=== PATIENT | female | born 1970 | race Caucasian/White ===

== ENCOUNTER 2019-09-14 15:13 | Observation (INO) | payer OTHER ==
[2019-09-14] MEDS ORDERED: SODIUM CHLORIDE 0.9% 500 ML 500 ML IV STA (15:36)
--- NOTE | 2019-09-14 15:53 | ED ---
General Adult HPI - General Chief complaint: Back Pain/Injury Stated complaint: Abd Pain, Nausea Time Seen by Provider: 09/14/19 15:29 Source: patient, RN notes reviewed Mode of arrival: wheelchair Limitations: no limitations, physical limitation - History of Present Illness Initial comments: This a 40-year-old female presents emergency Department with chief complaint of abdominal pain, back pain. Patient states his has been present for last 5 days. He states she states it does wax and wane but nothing really triggers the pain. Patient states that it's apartment which she cannot tolerate she states that she had to take some [place]. Patient states pain is 1 the right side. She does admit that she's had a prior LAP-BAND surgery was medications she did state that she touches constipated so took some laxatives and states that she made symptoms worse. She reports no fevers chills slight nausea no vomiting no dysuria no hematuria denies any current chest pain or shortness breath - Related Data Allergies Allergy/AdvReac Type Severity Reaction Status Date / Time Tetanus Vaccines and Toxoid Allergy transeveres Verified 09/14/19 15:24 myletis Review of Systems ROS Statement: Those systems with pertinent positive or pertinent negative responses have been documented in the HPI. ROS Other: All systems not noted in ROS Statement are negative. 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 Absent: tenderness, meningismus, lymphadenopathy Respiratory exam: Present: normal lung sounds bilaterally. Absent: respiratory distress, wheezes, rales, rhonchi, stridor Cardiovascular Exam: Present: regular rate, normal rhythm, normal heart sounds. Absent: systolic murmur, diastolic murmur, rubs, gallop, clicks GI/Abdominal exam: Present: soft, tenderness (Mild to moderate right upper quadrant), normal bowel sounds. Absent: distended, guarding, rebound, rigid Back exam: Present: CVA tenderness (R). Absent: CVA tenderness (L) Neurological exam: Present: alert, oriented X3 Skin exam: Present: warm, dry, intact, normal color. Absent: rash Course Vital Signs 09/14/19 15:18 Temperature 98.3 F Pulse Rate 86 Respiratory 18 Rate Blood Pressure 182/80 O2 Sat by Pulse 100 Oximetry - Reevaluation(s) Reevaluation #1: 09/14/19 15:53 Patient declines pain meds EKG Findings - EKG Comments: EKG Findings:: EKG performed at 16:16 normal sinus rhythm rate of 68 AK 150 QRS 84 QT/QTc/[address] elevation or depression normal axis normal intervals - EKG Results: EKG: interpreted by DINAH Medical Decision Making - Medical Decision Making Case discussed with Dr. Colunga recommends patient be admitted, started on IV antibiotics nothing by mouth after midnight. - Lab Data Result diagrams: 09/14/19 16:00 09/14/19 16:00 Lab Results 09/14/19 09/14/19 09/14/19 Range/Units 16:00 16:00 16:00 WBC 14.5 H (3.8-10.6) k/uL RBC 3.87 (3.80-5.40) m/uL Hgb 11.8 (11.4-16.0) gm/dL Hct 35.5 (34.0-46.0) % MCV 91.6 (80.0-100.0) fL MCH 30.5 (25.0-35.0) pg MCHC 33.3 (31.0-37.0) g/dL RDW 12.1 (11.5-15.5) % Plt Count 471 H (150-450) k/uL Neutrophils % 71 % Lymphocytes % 17 % Monocytes % 5 % Eosinophils % 5 % Basophils % 1 % Neutrophils # 10.3 H (1.3-7.7) k/uL Lymphocytes # 2.4 (1.0-4.8) k/uL Monocytes # 0.8 (0-1.0) k/uL Eosinophils # 0.7 (0-0.7) k/uL Basophils # 0.1 (0-0.2) k/uL Sodium 139 (137-145) mmol/L Potassium 3.9 (3.5-5.1) mmol/L Chloride 102 (98-107) mmol/L Carbon Dioxide 25 (22-30) mmol/L Anion Gap 12 mmol/L BUN 19 H (7-17) mg/dL Creatinine 0.64 (0.52-1.04) mg/dL Est GFR (CKD-EPI)AfAm >90 (>60 ml/min/1.73 sqM) Est GFR (CKD-EPI)NonAf >90 (>60 ml/min/1.73 sqM) Glucose 107 H (74-99) mg/dL Plasma Lactic Acid Jesse 0.8 (0.7-2.0) mmol/L Calcium 9.5 (8.4-10.2) mg/dL Total Bilirubin 0.5 (0.2-1.3) mg/dL AST 39 H (14-36) U/L ALT 48 (9-52) U/L Alkaline Phosphatase 309 H (38-126) U/L Troponin I (0.000-0.034) ng/mL Total Protein 7.7 (6.3-8.2) g/dL Albumin 4.4 (3.5-5.0) g/dL Lipase 41 (23-300) U/L Urine Color Urine Appearance (Clear) Urine pH (5.0-8.0) Ur Specific [place] (1.001-1.035) Urine Protein (Negative) Urine Glucose (UA) (Negative) Urine Ketones (Negative) Urine Blood (Negative) Urine Nitrite (Negative) Urine Bilirubin (Negative) Urine Urobilinogen (<2.0) mg/dL Ur Leukocyte Esterase (Negative) Urine RBC (0-5) /hpf Urine WBC (0-5) /hpf Ur Squamous Epith Cells (0-4) /hpf Urine Bacteria (None) /hpf Urine Mucus (None) /hpf 09/14/19 09/14/19 Range/Units 16:00 16:00 WBC (3.8-10.6) k/uL RBC (3.80-5.40) m/uL Hgb (11.4-16.0) gm/dL Hct (34.0-46.0) % MCV (80.0-100.0) fL MCH (25.0-35.0) pg MCHC (31.0-37.0) g/dL RDW (11.5-15.5) % Plt Count (150-450) k/uL Neutrophils % % Lymphocytes % % Monocytes % % Eosinophils % % Basophils % % Neutrophils # (1.3-7.7) k/uL Lymphocytes # (1.0-4.8) k/uL Monocytes # (0-1.0) k/uL Eosinophils # (0-0.7) k/uL Basophils # (0-0.2) k/uL Sodium (137-145) mmol/L Potassium (3.5-5.1) mmol/L Chloride (98-107) mmol/L Carbon Dioxide (22-30) mmol/L Anion Gap mmol/L BUN (7-17) mg/dL Creatinine (0.52-1.04) mg/dL Est GFR (CKD-EPI)AfAm (>60 ml/min/1.73 sqM) Est GFR (CKD-EPI)NonAf (>60 ml/min/1.73 sqM) Glucose (74-99) mg/dL Plasma Lactic Acid Jesse (0.7-2.0) mmol/L Calcium (8.4-10.2) mg/dL Total Bilirubin (0.2-1.3) mg/dL AST (14-36) U/L ALT (9-52) U/L Alkaline Phosphatase (38-126) U/L Troponin I <0.012 (0.000-0.034) ng/mL Total Protein (6.3-8.2) g/dL Albumin (3.5-5.0) g/dL Lipase (23-300) U/L Urine Color Yellow Urine Appearance Clear (Clear) Urine pH 6.0 (5.0-8.0) Ur Specific [place] 1.020 (1.001-1.035) Urine Protein Negative (Negative) Urine Glucose (UA) Negative (Negative) Urine Ketones 2+ H (Negative) Urine Blood Small H (Negative) Urine Nitrite Negative (Negative) Urine Bilirubin Negative (Negative) Urine Urobilinogen 2.0 (<2.0) mg/dL Ur Leukocyte Esterase Moderate H (Negative) Urine RBC 7 H (0-5) /hpf Urine WBC 4 (0-5) /hpf Ur Squamous Epith Cells 4 (0-4) /hpf Urine Bacteria Rare H (None) /hpf Urine Mucus Occasional H (None) /hpf Disposition Clinical Impression: Cholecystitis, acute with cholelithiasis Disposition: ADMITTED IP TO THIS HOSP Condition: Stable Referrals: Reji Reid MD [Primary Care Provider] - 1-2 days
[2019-09-14 16:16] LABS: Basophils # (A) 0.1 k/uL (0-0.2); Basophils % (A) 1 %; Eosinophils # (A) 0.7 k/uL (0-0.7); Eosinophils % (A) 5 %; HCT 35.5 % (34.0-46.0); HGB 11.8 gm/dL (11.4-16.0); Lymphocytes # (A) 2.4 k/uL (1.0-4.8); Lymphocytes % (A) 17 %; MCH 30.5 pg (25.0-35.0); MCHC 33.3 g/dL (31.0-37.0); MCV 91.6 fL (80.0-100.0); Mean Platelet Volume 6.5; Monocytes # (A) 0.8 k/uL (0-1.0); Monocytes % (A) 5 %; Neutrophils # (A) 10.3 k/uL (1.3-7.7); Neutrophils % (A) 71 %; Platelet Count 471 k/uL (150-450); RBC 3.87 m/uL (3.80-5.40); RDW 12.1 % (11.5-15.5); WBC 14.5 k/uL (3.8-10.6)
[2019-09-14 16:22] LABS: ALT 48 U/L (9-52); AST 39 U/L (14-36); African American GFR (CKD) >90 (>60 ml/min/1.73 sqM); Albumin 4.4 g/dL (3.5-5.0); Alkaline Phosphatase 309 U/L (38-126); Anion Gap 12 mmol/L; Blood Urea Nitrogen 19 mg/dL (7-17); Calcium 9.5 mg/dL (8.4-10.2); Carbon Dioxide 25 mmol/L (22-30); Chloride 102 mmol/L (98-107); Glucose 107 mg/dL (74-99); Non-African American GFR(CKD) >90 (>60 ml/min/1.73 sqM); Potassium 3.9 mmol/L (3.5-5.1); Sodium 139 mmol/L (137-145); Total Bilirubin 0.5 mg/dL (0.2-1.3); Total Protein 7.7 g/dL (6.3-8.2)
[2019-09-14 16:26] LABS: Appearance,Urine Clear (Clear); Bacteria,Urine Rare /hpf; Bilirubin,Urine Negative (Negative); Blood,Urine Small (Negative); Color,Urine Yellow; Glucose,Urine (UA) Negative (Negative); Ketones,Urine 2+ (Negative); Leukocyte Esterase,Urine Moderate (Negative); Mucus,Urine Occasional /hpf; Nitrite,Urine Negative (Negative); Protein,Urine Negative (Negative); RBC,Urine 7 /hpf (0-5); Squamous Epithelial Cell,Urine 4 /hpf (0-4); WBC,Urine 4 /hpf (0-5)
--- NOTE | 2019-09-14 16:41 | US ---
EXAMINATION TYPE: US gallbladder DATE OF EXAM: 09/14/2019 COMPARISON: NONE CLINICAL HISTORY: pain. back and epigastric pain EXAM MEASUREMENTS: Liver Length: 12.4 cm Gallbladder Wall: 0.6 cm CBD: 0.5 cm Right Kidney: 11.1 x 5.3 x 5.2 cm Technically difficult study due to extensive midline bowel gas Pancreas: not visualized due to midline bowel gas Liver: wnl Gallbladder: thickened wall, multiple stones, one did not move from neck area. Evidence for sonographic Luis's sign: Yes CBD: wnl Right Kidney: No hydronephrosis or masses seen IMPRESSION: Multiple gallstones. Gallbladder wall thickening consistent with acute and chronic cholec ystitis. Gallbladder is large and measures 9.5 x 3.5 cm. No dilated ducts.
[2019-09-14] MEDS ORDERED: PIPERACILLIN-TAZOBACTAM 3.375 GM in SODIUM CHLORIDE 0.9% 100 ML IVPB STA (16:55)
[2019-09-14] MEDS ORDERED: SODIUM CHLORIDE 0.9% 1,000 ML IV ONE (16:59)
[2019-09-14] MEDS ORDERED: HYDROmorphone 0.5 MG/0.5 ML SYRINGE IVP PRN (17:17)
[2019-09-14] MEDS ORDERED: ONDANSETRON 4 MG/2 ML VIAL IVP PRN (17:17)
[2019-09-14] MEDS ORDERED: NALOXONE 0.4 MG/ML 1 ML VIAL IV PRN (17:17)
[2019-09-14] MEDS: HYDROmorphone 0.5 MG/0.5 ML SYRINGE IVP STA (18:10)
[2019-09-14 19:31] VITALS: BMI 34.6
[2019-09-14] MEDS: SODIUM CHLORIDE 0.9% 1,000 ML IV SCH (19:43)
[2019-09-14] MEDS: HYDROmorphone 1 MG/ML 1 ML SYRINGE IVP PRN (22:38)
[2019-09-14] MEDS: PIPERACILLIN-TAZOBACTAM 3.375 GM in SODIUM CHLORIDE 0.9% 100 ML IVPB SCH (23:37)
[2019-09-15] MEDS: HYDROmorphone 1 MG/ML 1 ML SYRINGE IVP PRN ×3 (01:44→20:14)
[2019-09-15] MEDS: SODIUM CHLORIDE 0.9% 1,000 ML IV SCH ×3 (02:30→23:51)
[2019-09-15] MEDS: PIPERACILLIN-TAZOBACTAM 3.375 GM in SODIUM CHLORIDE 0.9% 100 ML IVPB SCH ×3 (08:04→23:50)
--- NOTE | 2019-09-15 09:57 | P.GSHP ---
History of Present Illness H&P Date: 09/15/19 Chief Complaint: Acute cholecystitis Patient known to our service. Patient came to the ER last night complaining of right upper quadrant pain with radiation to the back. This is associated with nausea as well. No fevers. No change in the color of her skin urine or stool. Ultrasound showed stones with ascending gallbladder and a positive Luis sign. White blood cell count elevated. T-max 100.6. AST 39, alkaline phosphatase 309. Patient history of lap band. Patient has complaints of frequent vomiting and dysphagia. She has been told in the past her lap band is empty of fluid. Patient is interested in band removal as well. - Review of Systems Comment: The patient denies any acute changes in vision or hearing, no dysphagia or odynophagia, no chest pain or shortness of breath, no dysuria or hematuria, no headache, no runny nose, no rectal bleeding or melena, no unexplained weight loss Past Medical History Past Medical History: Hypertension Additional Past Medical History / Comment(s): transverse mylitis History of Any Multi-Drug Resistant Organisms: None Reported Additional Past Surgical History / Comment(s): fatty tumor rt wrist removed,bilateral bone shaving from feet, lap band - deflated band, jaw surgery, rt ankle reconstructed dec 2018. Past Anesthesia/Blood Transfusion Reactions: No Reported Reaction Past Psychological History: No Psychological Hx Reported Smoking Status: Never smoker Past Alcohol Use History: None Reported Past Drug Use History: None Reported - Past Family History Father Family Medical History: CVA/TIA Mother Family Medical History: Coronary Artery Disease (CAD) Medications and Allergies Home Medications Medication Instructions Recorded Confirmed Type Aspirin EC [Ecotrin Low Dose] 81 mg PO DAILY 09/14/19 09/14/19 History Gabapentin [Neurontin] 300 mg PO BID PRN 09/14/19 09/14/19 History Hydrocodone/Acetaminophen [[place] 1 tab PO BID PRN 09/14/19 09/14/19 History 10-325] Ibuprofen [Motrin] 800 mg PO TID PRN 09/14/19 09/14/19 History Lisinopril 40 mg PO DAILY 09/14/19 09/14/19 History Allergies Allergy/AdvReac Type Severity Reaction Status Date / Time Tetanus Vaccines and Toxoid Allergy transeveres Verified 09/14/19 18:25 myletis Surgical - Exam Vital Signs Temp Pulse Resp BP Pulse Ox 98.3 F 86 18 182/80 100 09/14/19 15:18 09/14/19 15:18 09/14/19 15:18 09/14/19 15:18 09/14/19 15:18 Physical exam: General: Well-developed, well-nourished HEENT: Normocephalic, sclerae nonicteric Abdomen: Right upper quadrant tenderness, nondistended Extremities: No edema Neuro: Alert and oriented Results - Labs 09/14/19 16:00 09/14/19 16:00 Abnormal Lab Results - Last 24 Hours (Table) 09/14/19 09/14/19 09/14/19 Range/Units 16:00 16:00 16:00 WBC 14.5 H (3.8-10.6) k/uL Plt Count 471 H (150-450) k/uL Neutrophils # 10.3 H (1.3-7.7) k/uL BUN 19 H (7-17) mg/dL Glucose 107 H (74-99) mg/dL AST 39 H (14-36) U/L Alkaline Phosphatase 309 H (38-126) U/L Urine Ketones 2+ H (Negative) Urine Blood Small H (Negative) Ur Leukocyte Esterase Moderate H (Negative) Urine RBC 7 H (0-5) /hpf Urine Bacteria Rare H (None) /hpf Urine Mucus Occasional H (None) /hpf Diabetes panel 09/14/19 Range/Units 16:00 Sodium 139 (137-145) mmol/L Potassium 3.9 (3.5-5.1) mmol/L Chloride 102 (98-107) mmol/L Carbon Dioxide 25 (22-30) mmol/L BUN 19 H (7-17) mg/dL Creatinine 0.64 (0.52-1.04) mg/dL Glucose 107 H (74-99) mg/dL Calcium 9.5 (8.4-10.2) mg/dL AST 39 H (14-36) U/L ALT 48 (9-52) U/L Alkaline Phosphatase 309 H (38-126) U/L Total Protein 7.7 (6.3-8.2) g/dL Albumin 4.4 (3.5-5.0) g/dL Calcium panel 09/14/19 Range/Units 16:00 Calcium 9.5 (8.4-10.2) mg/dL Albumin 4.4 (3.5-5.0) g/dL Pituitary panel 09/14/19 Range/Units 16:00 Sodium 139 (137-145) mmol/L Potassium 3.9 (3.5-5.1) mmol/L Chloride 102 (98-107) mmol/L Carbon Dioxide 25 (22-30) mmol/L BUN 19 H (7-17) mg/dL Creatinine 0.64 (0.52-1.04) mg/dL Glucose 107 H (74-99) mg/dL Calcium 9.5 (8.4-10.2) mg/dL Adrenal panel 09/14/19 Range/Units 16:00 Sodium 139 (137-145) mmol/L Potassium 3.9 (3.5-5.1) mmol/L Chloride 102 (98-107) mmol/L Carbon Dioxide 25 (22-30) mmol/L BUN 19 H (7-17) mg/dL Creatinine 0.64 (0.52-1.04) mg/dL Glucose 107 H (74-99) mg/dL Calcium 9.5 (8.4-10.2) mg/dL Total Bilirubin 0.5 (0.2-1.3) mg/dL AST 39 H (14-36) U/L ALT 48 (9-52) U/L Alkaline Phosphatase 309 H (38-126) U/L Total Protein 7.7 (6.3-8.2) g/dL Albumin 4.4 (3.5-5.0) g/dL Assessment and Plan (1) Cholecystitis, acute with cholelithiasis Narrative/Plan: 48-year-old female known to our service. Patient with admission for acute cholecystitis. Patient was scheduled for laparoscopic cholecystectomy. After discussing her LAP-BAND related issues including frequent vomiting and dysphagia and the patient's interest in band removal I believe that is a medical necessity at this time as well. Will schedule case as laparoscopic cholecystectomy, possible open, possible lap band removal. Intraoperatively I will assess the band appearance and if appropriate will remove the band at this time. Risks of bleeding, infection, bile leak, bile duct injury, retained common bile duct stone, trocar injury, conversion to an open procedure, hernia, bowel perforation, gastric erosion, weight gain, and anesthesia related complications were reviewed. The patient understands and wishes to proceed. Current Visit: Yes Status: Acute Code(s): K80.00 - CALCULUS OF GALLBLADDER W ACUTE CHOLECYST W/O OBSTRUCTION SNOMED Code(s): 86232752
[2019-09-15] MEDS ORDERED: SUCCINYLCHOLINE CHLORIDE 100 MG/5 ML SYR IV ONE (10:44)
[2019-09-15] MEDS ORDERED: HYDROmorphone (PF) 1 MG/ML ONE (10:44)
[2019-09-15] MEDS ORDERED: NEOSTIGMINE 1 MG/ML 10 ML VIAL ONE (10:44)
[2019-09-15] MEDS ORDERED: ROCURONIUM BROMIDE 10 MG/ML 10 ML VIAL IV ONE (10:44)
[2019-09-15] MEDS ORDERED: GLYCOPYRROLATE 0.2 MG/ML 2 ML VIAL ONE (10:44)
[2019-09-15] MEDS ORDERED: MIDAZOLAM 2 MG/2 ML VIAL ONE (10:44)
[2019-09-15] MEDS ORDERED: fentaNYL (PF) 50 MCG/ML 2 ML AMP ONE (10:44)
[2019-09-15] MEDS ORDERED: PROPOFOL 10 MG/ML 20 ML VIAL IV ONE (10:44)
[2019-09-15] MEDS ORDERED: KETOROLAC 30 MG/ML 1 ML VIAL ONE (10:44)
[2019-09-15] MEDS ORDERED: LIDOCAINE 1% INJ 10MG/ML (20 ML MDV) ONE (10:44)
[2019-09-15] MEDS ORDERED: LACTATED RINGERS 1,000 ML IV ONE (10:54)
[2019-09-15] MEDS ORDERED: BUPIVACAINE (PF) 0.25% 30 ML VIAL SQ ONE (10:54)
--- NOTE | 2019-09-15 13:22 | P.OP ---
Date of Procedure: 09/15/19 Procedure(s) Performed: PREOPERATIVE DIAGNOSIS: Acute cholecystitis, lap band intolerance POSTOPERATIVE DIAGNOSIS: Acute cholecystitis with hydrops, lap band intolerance PROCEDURE: Laparoscopic cholecystectomy SURGEON: Cristine EBL: 30 mL ANESTHESIA: Gen. COMPLICATIONS: None OPERATIVE PROCEDURE: The patient was brought and placed on the operating room table in the supine position. The patient was placed under general anesthesia at that time. The abdomen was prepped and draped in the usual sterile fashion. A small vertical infraumbilical incision was made. The fascia was grasped with the Kane forceps. The fascia was retracted anteriorly. The Veress needle was advanced into the peritoneal cavity. The saline drop test was normal. Insufflation took place up to 15 mmHg. A 5 mm optical trocar was advanced and the peritoneal cavity. 2 additional 5 mm trochars were placed in the right upper quadrant under direct visualization. A 12 mm trocar was advanced into the epigastric incision site. The gallbladder was acutely inflamed. It was densely adherent to the surrounding omental fat. Careful dissection took place revealing approximately 50% of the gallbladder. At that point an opening was made in the fundus. The fluid was evacuated to allow for us to grasp the gallbladder. The fluid was clear in nature. Further dissection took place along the gallbladder until the junction between the gallbladder and cystic duct was visualized. Cystic artery was identified adjacent to that. The cystic artery was clipped using the 12 mm clipper and the LigaSure was utilized as well on the specimen side. The cystic duct was then divided after placement of 212 mm clips and the gallbladder was removed on the other side of those clips. The gallbladder was removed from the liver bed using a combination of the LigaSure device, blunt dissection, and electrocautery. A small opening in the g allbladder was made posteriorly and through that 3 stones were noted to fall into the peritoneal cavity. These were later removed and placed within the Endo Catch bag with the gallbladder itself. The gallbladder fossa was irrigated with saline. No bleeding or biliary drainage was seen. The band removal then took place. The previous port site incision was re-incised and the subcutaneous tissues were divided using electrocautery. The port was fully excised without difficulty. A 15 mm trocar was placed through that incision site. A liver retractor was used through our epigastric 12 mm trocar site to lift the left lobe liver anteriorly. There were adhesions to the band in the buccal that were lysed using both the LigaSure and electrocautery. The buccal was then opened. The band was then cut using the laparoscopic stacie. The band was then removed easily in 2 portions through the 15 mm trocar site. The stomach itself was inspected and revealed no evidence of erosion or prolapse. A drain was placed in the gallbladder fossa exiting from the most lateral right upper quadrant 5 mm trocar site. This was sutured to the skin using a 3-0 silk stitch. The specimen container can tainting the gallbladder and stones was then removed from the 15 mm trocar site. This required significant lengthening of our fascial incision. The 12 mm trocar site was reapproximated using a Mark-Osmin [id number] Ethibond stitch. The subcutaneous tissues at the port site was closed using a 3-0 Vicryl suture. The skin at all 4 incision sites were closed using 4-0 Monocryl sutures. Skin glue and sterile dressings were then applied. DISPOSITION: Stable to recovery room
[2019-09-15] MEDS: HYDROmorphone 0.5 MG/0.5 ML SYRINGE IVP STA ×2 (13:33→13:51)
[2019-09-15] MEDS: HYDROcodone/APAP 5-325MG 1 EACH TAB PO PRN ×3 (14:24→23:54)
[2019-09-15] MEDS: HEPARIN SODIUM,PORCINE 5,000 UNIT/ML 1 ML VIAL SQ SCH ×3 (14:37→23:50)
[2019-09-16] MEDS: HEPARIN SODIUM,PORCINE 5,000 UNIT/ML 1 ML VIAL SQ SCH ×3 (07:19→23:23)
[2019-09-16] MEDS: PIPERACILLIN-TAZOBACTAM 3.375 GM in SODIUM CHLORIDE 0.9% 100 ML IVPB SCH ×3 (07:19→23:22)
[2019-09-16] MEDS: HYDROmorphone 1 MG/ML 1 ML SYRINGE IVP PRN (07:20)
[2019-09-16] MEDS: SODIUM CHLORIDE 0.9% 1,000 ML IV SCH ×2 (07:20→20:09)
[2019-09-16 08:01] LABS: Basophils % (A) 0 %; Eosinophils # (A) 0.3 k/uL (0-0.7); Eosinophils % (A) 3 %; HCT 33.5 % (34.0-46.0); HGB 10.7 gm/dL (11.4-16.0); Lymphocytes # (A) 1.8 k/uL (1.0-4.8); Lymphocytes % (A) 19 %; MCH 29.7 pg (25.0-35.0); MCHC 31.8 g/dL (31.0-37.0); MCV 93.3 fL (80.0-100.0); Mean Platelet Volume 6.5; Monocytes # (A) 0.5 k/uL (0-1.0); Monocytes % (A) 5 %; Neutrophils # (A) 6.6 k/uL (1.3-7.7); Neutrophils % (A) 71 %; Platelet Count 428 k/uL (150-450); RBC 3.59 m/uL (3.80-5.40); RDW 12.2 % (11.5-15.5); WBC 9.4 k/uL (3.8-10.6)
[2019-09-16 08:12] LABS: ALT 53 U/L (9-52); AST 36 U/L (14-36); African American GFR (CKD) >90 (>60 ml/min/1.73 sqM); Albumin 3.6 g/dL (3.5-5.0); Alkaline Phosphatase 270 U/L (38-126); Anion Gap 8 mmol/L; Blood Urea Nitrogen 7 mg/dL (7-17); Calcium 9.1 mg/dL (8.4-10.2); Carbon Dioxide 26 mmol/L (22-30); Chloride 106 mmol/L (98-107); Glucose 94 mg/dL (74-99); Non-African American GFR(CKD) >90 (>60 ml/min/1.73 sqM); Potassium 3.9 mmol/L (3.5-5.1); Sodium 140 mmol/L (137-145); Total Bilirubin 0.5 mg/dL (0.2-1.3); Total Protein 6.5 g/dL (6.3-8.2)
--- NOTE | 2019-09-16 09:46 | P.PN ---
Subjective Progress Note Date: 09/16/19 Principal diagnosis: Acute cholecystitis Patient doing fairly well today. Pain is improved. Liver enzymes remain slightly elevated. White blood cell count normal. Objective - Vital Signs Vital signs: Vital Signs Temp 98.2 F 09/16/19 05:00 Pulse 64 09/16/19 05:00 Resp 18 09/16/19 05:00 BP 131/77 09/16/19 05:00 Pulse Ox 99 09/16/19 05:00 Intake & Output 09/15/19 09/16/19 09/16/19 19:59 06:59 18:59 Intake Total Output Total 50 Balance -50 Intake: IV Oral Output: Drainage 50 Right Abdomen 50 Estimated Blood Loss Other: Voiding Method # Voids - Exam Abdomen: Soft, nondistended, mild tenderness, incisions clean and dry, MINO serosanguineous - Labs CBC & Chem 7: 09/16/19 07:32 09/16/19 07:32 Labs: Abnormal Lab Results - Last 24 Hours (Table) 09/16/19 09/16/19 Range/Units 07:32 07:32 RBC 3.59 L (3.80-5.40) m/uL Hgb 10.7 L (11.4-16.0) gm/dL Hct 33.5 L (34.0-46.0) % ALT 53 H (9-52) U/L Alkaline Phosphatase 270 H (38-126) U/L Assessment and Plan (1) Cholecystitis, acute with cholelithiasis Narrative/Plan: Continue IV antibiotics. Recheck labs tomorrow. Likely discharge tomorrow morning. Increase diet. Add Toradol for pain control. Current Visit: Yes Status: Acute Code(s): K80.00 - CALCULUS OF GALLBLADDER W ACUTE CHOLECYST W/O OBSTRUCTION SNOMED Code(s): 19085707
[2019-09-16] MEDS: HYDROcodone/APAP 5-325MG 1 EACH TAB PO PRN ×2 (10:44→15:20)
[2019-09-16] MEDS: KETOROLAC 30 MG/ML 1 ML VIAL IVP SCH ×3 (11:59→23:23)
[2019-09-16 22:39] VITALS: RESP 20
[2019-09-17 05:12] VITALS: BP 133/66; PULSE 55; TEMP 98.3
[2019-09-17] MEDS: SODIUM CHLORIDE 0.9% 1,000 ML IV SCH (05:31)
[2019-09-17] MEDS: KETOROLAC 30 MG/ML 1 ML VIAL IVP SCH ×2 (05:32→11:26)
[2019-09-17] MEDS: PIPERACILLIN-TAZOBACTAM 3.375 GM in SODIUM CHLORIDE 0.9% 100 ML IVPB SCH (07:43)
[2019-09-17] MEDS: HEPARIN SODIUM,PORCINE 5,000 UNIT/ML 1 ML VIAL SQ SCH (07:44)
[2019-09-17 09:17] LABS: ALT 41 U/L (9-52); AST 21 U/L (14-36); African American GFR (CKD) >90 (>60 ml/min/1.73 sqM); Albumin 3.4 g/dL (3.5-5.0); Alkaline Phosphatase 225 U/L (38-126); Anion Gap 9 mmol/L; Blood Urea Nitrogen 8 mg/dL (7-17); Calcium 9.1 mg/dL (8.4-10.2); Carbon Dioxide 26 mmol/L (22-30); Chloride 108 mmol/L (98-107); Glucose 114 mg/dL (74-99); Non-African American GFR(CKD) >90 (>60 ml/min/1.73 sqM); Potassium 4.2 mmol/L (3.5-5.1); Sodium 143 mmol/L (137-145); Total Bilirubin 0.4 mg/dL (0.2-1.3); Total Protein 6.2 g/dL (6.3-8.2)
--- NOTE | 2019-09-17 10:08 | P.DS ---
<Adriana Quinn - Last Filed: 09/17/19 10:05> Providers Expected date of discharge: 09/17/19 Hospital Course: 48-year-old female who underwent laparoscopic cholecystectomy and removal of lap band by Dr. Colunga. The patient is doing well postoperatively without any immediate complications. Her pain is controlled on oral medications. Tolerating diet without nausea or vomiting. Vital signs have been stable. She is stable for discharge home today. Please see EMR for further hospital course details. Discharge diagnosis 1. Acute cholecystitis with hydrops and lap band intolerance, s/p laparoscopic cholecystectomy and removal of lap band Nurse practitioner note has been reviewed by physician. Signing provider agrees with the documented findings, assessment, and plan of care. Patient Condition at Discharge: Stable Plan - Discharge Summary New Discharge Prescriptions: Continue Hydrocodone/Acetaminophen [[place] 10-325] 1 tab PO BID PRN PRN Reason: Pain No Action Lisinopril 40 mg PO DAILY Ibuprofen [Motrin] 800 mg PO TID PRN PRN Reason: Pain Gabapentin [Neurontin] 300 mg PO BID PRN PRN Reason: Pain Aspirin EC [Ecotrin Low Dose] 81 mg PO DAILY Discharge Medication List Aspirin EC [Ecotrin Low Dose] 81 mg PO DAILY 09/14/19 [History] Gabapentin [Neurontin] 300 mg PO BID PRN 09/14/19 [History] Hydrocodone/Acetaminophen [[place] 10-325] 1 tab PO BID PRN 09/14/19 [History] Ibuprofen [Motrin] 800 mg PO TID PRN 09/14/19 [History] Lisinopril 40 mg PO DAILY 09/14/19 [History] Follow up Appointment(s)/Referral(s): Tyron Colunga MD [Medical Doctor] - 10/04/19 10:30 am Reji Reid MD [Primary Care Provider] - 09/18/19 1:00 pm Patient Instructions/Handouts: Laparoscopic Cholecystectomy (DC) Activity/Diet/Wound Care/Special Instructions: Low fat diet. No driving while taking [place] No lifting over 10 pounds You may shower. No soaking or tub baths Very light activity until you are reevaluated at your follow up appointment with your surgeon Discharge Disposition: HOME SELF-CARE <Tyron Colunga - Last Filed: 09/17/19 13:52> Providers Date of admission: 09/16/19 11:06 Attending physician: Tyron Colunga Primary care physician: Reji Reid - Discharge Diagnosis(es) (1) Cholecystitis, acute with cholelithiasis Status: Acute Hospital Course: As above. Patient doing well. Follow-up one week. Remove drain.
== END 2019-09-17 11:49 | disposition home or self-care (01) ==
LOC: EC 15:13 → 4MS4W 17:08 → INTOOBSV 09-16 11:06 → OBSVTOIN 09-16 11:06 → UNDODISIN 09-17 11:49
PROVIDERS: ADMIT Surgery; ATTEND Surgery
DX: K80.00 Calculus of gallbladder with acute cholecystitis without obstruction (principal); K82.1 Hydrops of gallbladder; K95.09 Other complications of gastric band procedure; R13.10 Dysphagia, unspecified; I10 Essential (primary) hypertension; Z79.82 Long term (current) use of aspirin; Z79.899 Other long term (current) drug therapy; Z98.84 Bariatric surgery status; Z88.7 Allergy status to serum and vaccine; Z82.49 Family history of ischemic heart disease and other diseases of the circulatory system; Z82.3 Family history of stroke; Y84.8 Other medical procedures as the cause of abnormal reaction of the patient, or of later complication, without mention of misadventure at the time of the procedure
CPT/HCPCS: 47562; 43772; 96361; 96374; 99285; 36415; 93005; 88304; 80053 ×3; 83605; 83690; 84484; 85025 ×2; 81001; 76705; G0378 ×4; J2543 ×4; J2250; J1644 ×3; J2710; J2405; J2001; J3010; J1885 ×3; J1170 ×5; J0330; J2704